=== PATIENT | male | born 1980 | race Caucasian/White ===

== ENCOUNTER 2019-03-26 12:09 | Inpatient (IN) | payer SELFPAY | END 2019-03-29 09:30 | disposition home or self-care (01) | LOC: YASAS 12:09 → Y6N 18:21 ==

== ENCOUNTER 2019-08-01 19:17 | Inpatient (IN) | payer OTHER ==
[2019-08-01 21:48] VITALS: BMI 25.0
--- NOTE | 2019-08-01 22:57 | HP ---
CIWA Score Nausea/Vomitin Muscle Tremors: 4-Moderate,w/Arms Extend Anxiety: 4-Mod. Anxious/Guarded Agitation: 4-Moderately Restless Paroxysmal Sweats: 3 Orientation: 1-Uncertain about Date Tacttile Disturbances: 2-Mild Itch/Numbness/Burn Auditory Disturbances: 2-Mild Harshness/Frighten (to noise) Visual Disturbances: 3-Moderate Sensitivity (bright light) Headache: 4-Moderately Severe CIWA-Ar Total Score: 30 - Admission Criteria OASAS Guidelines: Admission for Medically Managed Detox: Requires at least one of the followin. CIWA greater than 12 2. Seizures within the past 24 hours 3. Delirium tremens within the past 24 hours 4. Hallucinations within the past 24 hours 5. Acute intervention needed for co occurring medical disorder 6. Acute intervention needed for co occurring psychiatric disorder 7. Severe withdrawal that cannot be handled at a lower level of care (continued vomiting, continued diarrhea, abnormal vital signs) requiring intravenous medication and/or fluids 8. Patient presents the following: Acute intervention needed for co-occurring med or psych disorder (elevated b/p and tachy) Admission Criteria Met: Admission criteria met Admitting History and Physical - Smoking History Smoking history: Never smoked - Alcohol/Substance Use Hx Alcohol Use: Yes Admission ROS S - HPI Chief Complaint: seeking detox for alcohol dependence Allergies/Adverse Reactions: Allergies Allergy/AdvReac Type Severity Reaction Status Date / Time No Known Allergies Allergy Verified 08/01/19 21:36 History of Present Illness: here for alcohol detox. he is self referred. last here in 2018. client reports sobriety until a few days ago approx 3 days ago when he relapsed. now presents with c/o withdrawal sx's as he wants to stop drinking. last alcohol use this morning. he reports he has been drinking about 1/2 daily. he has run out of money and is now in withdrawal. 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 client utox + bup... denies opi use states took a total of 8 mg strip to day to help with withdrawal sx's. Search Terms: rosales enoc, 1980Search Date: 08/01/2019 10:55:57 PM The Drug Utilization Report below displays all of the controlled substance prescriptions, if any, that your patient has filled in the last twelve months. The information displayed on this report is compiled from pharmacy submissions to the Department, and accurately reflects the information as submitted by the pharmacies. This report was requested by: Shahnaz Mooney | Reference #: [id number] There are no results for the search terms that you entered. Exam Limitations: No Limitations - Ebola screening Have you traveled outside of the country in the last 21 days: No (N) Have you had contact with anyone from an Ebola affected area: No Do you have a fever: No - Review of Systems Constitutional: Chills, Loss of Appetite, Night Sweats, Changes in sleep EENT: reports: No Symptoms Reported Respiratory: reports: No Symptoms reported, Shortness of Breath Cardiac: reports: No Symptoms Reported GI: reports: Nausea, Poor Appetite, Poor Fluid Intake, Vomiting : reports: No Symptoms Reported Musculoskeletal: reports: Back Pain, Joint Pain, Neck Pain Integumentary: reports: Flushing, Sweating Neuro: reports: Headache, Seizure (few years ago r/t withdrawa), Dizziness Endocrine: reports: No Symptoms Reported Hematology: reports: No Symptoms Reported Psychiatric: reports: Orientated x3, Agitated (irritable), Anxious, Depressed Other Systems: Reviewed and Negative Patient History - Patient Medical History Hx Anemia: No Hx Asthma: No Hx Chronic Obstructive Pulmonary Disease (COPD): No Hx Cancer: No Hx Cardiac Disorders: No Hx Congestive Heart Failure: No Hx Hypertension: No Hx Hypercholesterolemia: No Hx Pacemaker: No HX Cerebrovascular Accident: No Hx Seizures: No Hx Dementia: No Hx Diabetes: No Hx Gastrointestinal Disorders: No Hx Liver Disease: Yes Hx Genitourinary Disorders: No Hx Sexually Transmitted Disorders: No Hx Renal Disease (ESRD): No Hx Thyroid Disease: No Hx Human Immunodeficiency Virus (HIV): No Hx Hepatitis C: Yes (UNTREATED) Hx Depression: No Hx Suicide Attempt: No Hx Bipolar Disorder: No Hx Schizophrenia: No Other Medical History: denies - Patient Surgical History Past Surgical History: No - PPD History Previous Implant?: Yes Documented Results: Negative w/proof Implanted On Prior [facility] Admission?: Yes Date: 03/28/19 Results: 0MM PPD to be Administered?: No - Smoking Cessation Smoking history: Current every day smoker Have you smoked in the past 12 months: Yes Aproximately how many cigarettes per day: 5 Cigars Per Day: 0 Hx Chewing Tobacco Use: No Initiated information on smoking cessation: Yes 'Breaking Loose' booklet given: 08/01/19 - Substance & Tx. History Hx Alcohol Use: Yes Hx Substance Use: Yes Substance Use Type: Alcohol Hx Substance Use Treatment: Yes ([facility]) - Substances abused Alcohol Substance route: Oral Frequency: Daily Amount used: 1/2 GAL OF VODKA Age of first use: 17 Date of last use: 08/01/19 Admission Physical Exam [facility] - Vital Signs Vital Signs: Vital Signs - 24 hr 08/01/19 21:36 Temperature 97.7 F Pulse Rate 104 H Respiratory 20 Rate Blood Pressure 171/92 H - Physical General Appearance: Yes: Moderate Distress, Alcohol on Breath, Irritable, Sweating, Anxious HEENTM: Yes: EOMI, Normocephalic, Normal Voice, BRAEDEN, Pharynx Normal, Rhinorrhea Respiratory: Yes: Chest Non-Tender, Lungs Clear, Normal Breath Sounds, No Respiratory Distress, No Accessory Muscle Use Neck: Yes: No masses,lesions,Nodules, Supple, Trachea in good position Breast: Yes: Breasts Symetrical Cardiology: Yes: Regular Rhythm, S1, S2, Tachycardia Abdominal: Yes: Normal Bowel Sounds, Non Tender, Soft Genitourinary: Yes: Within Normal Limits Back: Yes: Normal Inspection Musculoskeletal: Yes: full range of Motion, Gait Steady Extremities: Yes: Normal Capillary Refill, Normal Range of Motion, Non-Tender Neurological: Yes: Fully Oriented, Alert, Motor Strength 5/5, Depressed Affect Integumentary: Yes: Warm, Moist, Other (flushed multiple tattoos) Lymphatic: Yes: Within Normal Limits - Diagnostic (1) Alcohol dependence with withdrawal, uncomplicated Current Visit: Yes Status: Acute (2) At risk for dehydration due to poor fluid intake Current Visit: Yes Status: Acute (3) Depressed affect Current Visit: Yes Status: Acute (4) Nicotine dependence Current Visit: Yes Status: Acute Qualifiers: Nicotine product type: cigarettes Substance use status: uncomplicated Qualified Code(s): F17.210 - Nicotine dependence, cigarettes, uncomplicated (5) Homeless Current Visit: Yes Status: Acute (6) HCV (hepatitis C virus) Current Visit: No Status: Acute Qualifiers: Viral hepatitis chronicity: chronic Cleared for Admission [facility] - Detox or Rehab [facility] Level of Care: Medically Managed Detox Regimen/Protocol: Librium Claeared for Rehab Admission: No Breathalyzer - Breathalyzer Breathalyzer: 0 Urine Drug Screen - Test Device Lot number: [id number] Expiration date: 12/31/20 - Control Is test valid?: Yes - Results Drug screen NEGATIVE: No Urine drug screen results: OXY-Oxycodone Inpatient Rehab Admission - Rehab Decision to Admit Inpatient rehab admission?: No
[2019-08-01] MEDS ORDERED: MAGNESIUM CITRATE 300 ML BOTTLE PO PRN (23:10)
[2019-08-01] MEDS ORDERED: P-EPHED 60MG/TRIPROLIDI 2.5MG TABLET PO PRN (23:10)
[2019-08-01] MEDS ORDERED: MAGNESIUM HYDROX 2400MG/30ML ORAL SUSPENSION 30 ML CUP PO PRN (23:10)
[2019-08-01] MEDS ORDERED: ACETAMINOPHEN 325 MG TABLET (FP) PO PRN ×2 (23:10)
[2019-08-01] MEDS ORDERED: NICOTINE POLACRILEX 2 MG GUM BUC PRN (23:10)
[2019-08-01] MEDS ORDERED: BISMUTH SUBSALICYLATE 524 MG/30 ML UD PO PRN (23:10)
[2019-08-01] MEDS ORDERED: guaiFENesin 200 MG/10 ML 10 ML UNIT-DOSE CUPS PO PRN (23:10)
[2019-08-01] MEDS ORDERED: METHOCARBAMOL 500 MG TABLET PO PRN (23:10)
[2019-08-01] MEDS ORDERED: DICYCLOMINE HCL 10 MG CAPSULE PO PRN (23:10)
[2019-08-01] MEDS ORDERED: MELATONIN 5 MG TABLETS PO PRN (23:10)
[2019-08-01] MEDS ORDERED: MENTHOL/PHENOL 1 EACH UD MM PRN (23:10)
[2019-08-01] MEDS ORDERED: chlordiazePOXIDE HCL 25 MG CAPSULE PO PRN (23:10)
[2019-08-01] MEDS ORDERED: TRIMETHOBENZAMIDE HCL 200MG/2ML INJ IM ONE (23:30)
[2019-08-02] MEDS: chlordiazePOXIDE HCL 25 MG CAPSULE PO SCH ×6 (01:32→22:30)
[2019-08-02] MEDS: ONDANSETRON *ODT* 4 MG TABLET SL PRN (02:34)
[2019-08-02] MEDS: PRENATAL VITAMINS W/ FOLIC ACID TABLET (FP) PO SCH (10:53)
[2019-08-02] MEDS: NICOTINE 14 MG/24 HOURS TOPICAL PATCH TD SCH (10:55)
[2019-08-02 10:58] LABS: ALBUMIN 4.3 g/dl (3.4-5.0); BILIRUBIN,TOTAL 2.2 mg/dL (0.2-1); BLOOD UREA NITROGEN 17.9 mg/dL (7-18); CALCIUM 9.4 mg/dL (8.5-10.1); CREATININE 1.1 mg/dL (0.55-1.3)
[2019-08-02 11:10] LABS: HEMATOCRIT 41.5 % (35.4-49); HEMOGLOBIN 14.3 GM/dL (11.7-16.9); MCH 30.9 pg (25.7-33.7); MCHC 34.6 g/dl (32.0-35.9); MEAN CELL VOLUME 89.3 fl (80-96); MEAN PLT VOLUME 8.1 fl (7.5-11.1); PLATELET COUNT 172 K/MM3 (134-434); RBC 4.64 M/mm3 (4.00-5.60); RDW 12.7 % (11.9-15.9); WHITE BLOOD COUNT 8.4 K/mm3 (4.0-10.0)
[2019-08-02 12:30] LABS: POTASSIUM 2.8 mmol/L (3.5-5.1)
--- NOTE | 2019-08-02 12:45 | PN ---
S CIWA - CIWA Score Nausea/Vomitin-Mild Nausea/No Vomiting Muscle Tremors: 3 Anxiety: 3 Agitation: 3 Paroxysmal Sweats: 3 Orientation: 0-Oriented Tacttile Disturbances: 0-None Auditory Disturbances: 0-None Visual Disturbances: 0-None Headache: 1-Very Mild CIWA-Ar Total Score: 14 BHS Progress Note (SOAP) Subjective: pt states doing better with detox- day #1 O: Vital Signs - 24 hr 08/01/19 08/01/19 08/02/19 21:36 23:49 00:10 Temperature 97.7 F 98.1 F Pulse Rate 104 H 104 H 112 H Respiratory 20 16 20 Rate Blood Pressure 171/92 H 134/96 137/76 08/02/19 08/02/19 08/02/19 00:30 03:30 06:00 Temperature 98.4 F Pulse Rate 89 Respiratory 18 18 20 Rate Blood Pressure 141/82 08/02/19 09:47 Temperature 98.5 F Pulse Rate 115 H Respiratory 18 Rate Blood Pressure 141/90 Laboratory Tests 08/02/19 08/02/19 08/02/19 07:50 07:50 07:50 WBC 8.4 RBC 4.64 Hgb 14.3 Hct 41.5 MCV 89.3 MCH 30.9 MCHC 34.6 RDW 12.7 Plt Count 172 D MPV 8.1 Sodium 133 L Potassium 2.8 L* Chloride 92 L Carbon Dioxide 35 H Anion Gap 6 L BUN 17.9 Creatinine 1.1 Est GFR (CKD-EPI)AfAm 98.87 Est GFR (CKD-EPI)NonAf 85.31 Random Glucose 152 H Calcium 9.4 Total Bilirubin 2.2 H AST 27 ALT 46 Alkaline Phosphatase 64 Total Protein 7.0 Albumin 4.3 HIV 1&2 Antibody Screen Negative HIV P24 Antigen Negative decreased potassium a/p: AUD- continue detox protocol low K- repletion with Kcl- ordered, repeat chem 7 orderedd
--- NOTE | 2019-08-02 14:48 | CONSULT ---
[facility] Psychiatric Consult - Data Date of interview: 08/02/19 Admission source: [facility] Identifying data: Readmission to [facility] for this 38 y/o male self- referred for detoxification ([place] issues : alcohol, nicotine). Interviewd at [address] [place] [address]. Patient is single, no dependents, homeless, unemployed and deprived of income. Substance Abuse History: Discussed with the patient. Details in current [facility] reporty as follows : Smoking history: Current every day smoker. Have you smoked in the past 12 months: Yes. Aproximately how many cigarettes per day: 5. Cigars Per Day: 0. Hx Chewing Tobacco Use: No. Initiated information on smoking cessation: Yes. 'Breaking Loose' booklet given: 08/01/19. - Substance & Tx. History. Hx Alcohol Use: Yes. Hx Substance Use: Yes. Substance Use Type : Alcohol. Hx Substance Use Treatment: Yes ([facility]). - Substances abused. Alcohol. Substance route: Oral. Frequency: Daily. Amount used: 1/2 GAL OF VODKA. Age of first use: 17. Date of last use: 08/01/19 Medical History: Patient endorses good general health. Psychiatric History: Patient denies history of psychiatric hospitalizations, OPD care or suicide attempts. Physical/Sexual Abuse/Trauma History: Patient denies. Additional Comment: Urine drug screen results: OXY-Oxycodone. Noted. Mental Status Exam - Mental Status Exam Alert and Oriented to: Time, Place, Person Cognitive Function: Good Patient Appearance: Well Groomed (covered with tattoos : neck, cheeks, upper extremities, chest) Mood: Hopeful, Euthymic Affect: Appropriate, Normal Range Patient Behavior: Fatigued, Appropriate, Cooperative Speech Pattern: Clear Voice Loudness: Normal Thought Process: Intact, Goal Oriented Thought Disorder: Not Present Hallucinations: Denies Suicidal Ideation: Denies Homicidal Ideation: Denies Insight/Judgement: Poor Sleep: Well Appetite: Good Gait/Station: Normal Psychiatric Findings - Problem List ([place] 1, 2,3) (1) Alcohol dependence with withdrawal, uncomplicated Current Visit: Yes Status: Acute (2) Nicotine dependence Current Visit: Yes Status: Chronic Qualifiers: Nicotine product type: cigarettes Substance use status: uncomplicated Qualified Code(s): F17.210 - Nicotine dependence, cigarettes, uncomplicated - Initial Treatment Plan Initial Treatment Plan: Psychoeducation. Sleep hygiene. Detoxification. MAT services discussed with patient. AA meetings. Observation.
[2019-08-02] MEDS: POTASSIUM CHLORIDE TABS 20 MEQ TABLET.ER (FP) PO SCH ×2 (18:37→22:30)
[2019-08-02] MEDS: THIAMINE HCL 100 MG TABLET (FP) PO SCH (22:30)
[2019-08-03] MEDS: chlordiazePOXIDE HCL 25 MG CAPSULE PO SCH ×4 (06:33→22:31)
[2019-08-03] MEDS: POTASSIUM CHLORIDE TABS 20 MEQ TABLET.ER (FP) PO SCH ×2 (10:37→22:30)
[2019-08-03] MEDS: PRENATAL VITAMINS W/ FOLIC ACID TABLET (FP) PO SCH (10:37)
[2019-08-03] MEDS: NICOTINE 14 MG/24 HOURS TOPICAL PATCH TD SCH (11:00)
--- NOTE | 2019-08-03 12:13 | PN ---
[facility] CIWA - CIWA Score Nausea/Vomitin-No Nausea/No Vomiting Muscle Tremors: 2 Anxiety: 2 Agitation: 2 Paroxysmal Sweats: 2 Orientation: 0-Oriented Tacttile Disturbances: 0-None Auditory Disturbances: 0-None Visual Disturbances: 0-None Headache: 0-None Present CIWA-Ar Total Score: 8 BHS Progress Note (SOAP) Subjective: sweats shakes nausea interrupted sleep irritable Objective: 08/03/19 12:12 Vital Signs Temperature 97.9 F 08/03/19 09:31 Pulse Rate 113 H 08/03/19 09:31 Respiratory Rate 18 08/03/19 09:31 Blood Pressure 103/64 08/03/19 09:31 O2 Sat by Pulse Oximetry (%) Laboratory Tests 08/02/19 08/02/19 08/02/19 07:50 07:50 07:50 WBC 8.4 RBC 4.64 Hgb 14.3 Hct 41.5 MCV 89.3 MCH 30.9 MCHC 34.6 RDW 12.7 Plt Count 172 D MPV 8.1 Sodium 133 L Potassium 2.8 L* Chloride 92 L Carbon Dioxide 35 H Anion Gap 6 L BUN 17.9 Creatinine 1.1 Est GFR (CKD-EPI)AfAm 98.87 Est GFR (CKD-EPI)NonAf 85.31 Random Glucose 152 H Calcium 9.4 Total Bilirubin 2.2 H AST 27 ALT 46 Alkaline Phosphatase 64 Total Protein 7.0 Albumin 4.3 HIV 1&2 Antibody Screen Negative HIV P24 Antigen Negative repeated labs pending pt is currently ordered [id number] ambulating no acute distress Assessment: 08/03/19 12:12 withdrawals Plan: continue detox increase fluids pending labs
[2019-08-03] MEDS: THIAMINE HCL 100 MG TABLET (FP) PO SCH (22:30)
[2019-08-04] MEDS ORDERED: chlordiazePOXIDE HCL 10 MG CAPSULE PO PRN
[2019-08-04] MEDS: chlordiazePOXIDE HCL 10 MG CAPSULE PO SCH ×4 (05:32→22:22)
[2019-08-04 10:17] LABS: PH,URINE 8.5 (5.0-8.0); URINE APPEARANCE CLOUDY; URINE BILIRUBIN NEGATIVE (NEGATIVE); URINE COLOR YELLOW; URINE GLUCOSE (UA) NEGATIVE (NEGATIVE); URINE KETONE NEGATIVE (NEGATIVE); URINE LEUK ESTERASE NEGATIVE (NEGATIVE); URINE NITRITE NEGATIVE (NEGATIVE); URINE PROTEIN NEGATIVE (NEGATIVE)
[2019-08-04] MEDS: NICOTINE 14 MG/24 HOURS TOPICAL PATCH TD SCH (10:40)
[2019-08-04] MEDS: POTASSIUM CHLORIDE TABS 20 MEQ TABLET.ER (FP) PO SCH (10:41)
[2019-08-04] MEDS: PRENATAL VITAMINS W/ FOLIC ACID TABLET (FP) PO SCH (10:41)
[2019-08-04] MEDS: IBUPROFEN 400 MG TABLET (FP) PO PRN (10:42)
[2019-08-04 10:57] LABS: BLOOD UREA NITROGEN 16.7 mg/dL (7-18); CALCIUM 9.1 mg/dL (8.5-10.1); CREATININE 0.9 mg/dL (0.55-1.3)
--- NOTE | 2019-08-04 11:19 | PN ---
S CIWA - CIWA Score Nausea/Vomitin-Mild Nausea/No Vomiting Muscle Tremors: 1-None Visible, but [place] Anxiety: 2 Agitation: 2 Paroxysmal Sweats: No Perspiration Orientation: 0-Oriented Tacttile Disturbances: 1-Very Mild Itch/Numbness Auditory Disturbances: 0-None Visual Disturbances: 0-None Headache: 1-Very Mild CIWA-Ar Total Score: 8 BHS Progress Note (SOAP) Subjective: alert,irritable,anxious,interrupted sleep,pain in the body Objective: 08/04/19 11:16 Vital Signs Temperature 98.1 F 08/04/19 09:54 Pulse Rate 80 08/04/19 09:54 Respiratory Rate 17 08/04/19 09:54 Blood Pressure 104/66 08/04/19 09:54 O2 Sat by Pulse Oximetry (%) 08/04/19 11:17 Laboratory Results - last 24 hr 08/04/19 08/04/19 07:30 07:50 Sodium 138 Potassium 4.0 Chloride 97 L Carbon Dioxide 35 H Anion Gap 5 L BUN 16.7 Creatinine 0.9 Est GFR (CKD-EPI)AfAm 126.02 Est GFR (CKD-EPI)NonAf 108.73 Random Glucose 98 Calcium 9.1 Urine Color Yellow Urine Appearance Cloudy Urine pH 8.5 H Ur Specific [place] 1.023 Urine Protein Negative Urine Glucose (UA) Negative Urine Ketones Negative Urine Blood Negative Urine Nitrite Negative Urine Bilirubin Negative Urine Urobilinogen 1.0 Ur Leukocyte Esterase Negative 08/04/19 11:17 k is 4.0 Assessment: 08/04/19 11:17 withdrawal symptom Plan: continue detox librium regimen,kis 4,to d/c k replacement
--- NOTE | 2019-08-04 11:20 | PN ---
[facility] Progress Note Note: rpr pending
--- NOTE | 2019-08-04 12:01 | EKG ---
Test Reason : Blood Pressure : / mmHG Vent. Rate : 093 BPM Atrial Rate : 093 BPM P-R Int : 166 ms QRS Dur : 092 ms QT Int : 366 ms P-R-T Axes : 067 057 029 degrees QTc Int : 455 ms NORMAL SINUS RHYTHM NORMAL ECG WHEN COMPARED WITH ECG OF 26-MAR-2019 18:31, NO SIGNIFICANT CHANGE WAS FOUND Confirmed by LEA SMITH MD ([id number]) on 08/04/2019 12:01:20 PM Referred By: Confirmed By:LEA SMITH MD
[2019-08-04] MEDS: hydrOXYzine PAMOATE 25 MG CAPSULE (FP) PO PRN (15:33)
[2019-08-04] MEDS: ONDANSETRON *ODT* 4 MG TABLET SL PRN (17:46)
[2019-08-04] MEDS: THIAMINE HCL 100 MG TABLET (FP) PO SCH (22:23)
[2019-08-05] MEDS: chlordiazePOXIDE HCL 10 MG CAPSULE PO SCH ×2 (06:44→17:56)
[2019-08-05] MEDS: PRENATAL VITAMINS W/ FOLIC ACID TABLET (FP) PO SCH (10:28)
[2019-08-05] MEDS: NICOTINE 14 MG/24 HOURS TOPICAL PATCH TD SCH (10:29)
[2019-08-05] MEDS: hydrOXYzine PAMOATE 25 MG CAPSULE (FP) PO PRN (10:30)
[2019-08-05] MEDS: IBUPROFEN 400 MG TABLET (FP) PO PRN (10:31)
[2019-08-05] MEDS: MAG HYDROX/AL HYDROX/SIMETH 30 ML UNIT-DOSE CUP PO PRN ×2 (10:33→17:54)
--- NOTE | 2019-08-05 10:37 | PN ---
S CIWA - CIWA Score Nausea/Vomitin-Mild Nausea/No Vomiting Muscle Tremors: 1-None Visible, but [place] Anxiety: 1-Mildly Anxious Agitation: 2 Paroxysmal Sweats: No Perspiration Orientation: 0-Oriented Tacttile Disturbances: 1-Very Mild Itch/Numbness Auditory Disturbances: 0-None Visual Disturbances: 0-None Headache: 1-Very Mild CIWA-Ar Total Score: 7 BHS Progress Note (SOAP) Subjective: alert,irritable,anxious,interrupted sleep Objective: 08/05/19 10:35 Vital Signs Temperature 98.5 F 08/05/19 09:15 Pulse Rate 93 H 08/05/19 09:15 Respiratory Rate 16 08/05/19 09:15 Blood Pressure 116/66 08/05/19 09:15 O2 Sat by Pulse Oximetry (%) Assessment: 08/05/19 10:37 withdrawal symptom 08/05/19 10:38 rpr pending Plan: continue detox librium regimen,discharge in am
[2019-08-05] MEDS ORDERED: PANTOPRAZOLE 40 MG TABLET (FP) PO ONE (15:09)
[2019-08-05] MEDS: THIAMINE HCL 100 MG TABLET (FP) PO SCH (22:21)
[2019-08-06] MEDS ORDERED: chlordiazePOXIDE HCL 10 MG CAPSULE PO ONE (05:00)
--- NOTE | 2019-08-06 08:50 | DS ---
[facility] Detox Discharge Summary Admission Date: 08/01/19 Discharge Date: 08/06/19 - History Present History: Alcohol Dependence - Physical Exam Results Vital Signs: Vital Signs Temperature 97.9 F 08/06/19 06:44 Pulse Rate 77 08/06/19 06:44 Respiratory Rate 18 08/06/19 06:44 Blood Pressure 109/73 08/06/19 06:44 O2 Sat by Pulse Oximetry (%) Pertinent Admission Physical Exam Findings: pt arrived in withdrawals Vital Signs Temperature 97.9 F 08/06/19 06:44 Pulse Rate 77 08/06/19 06:44 Respiratory Rate 18 08/06/19 06:44 Blood Pressure 109/73 08/06/19 06:44 O2 Sat by Pulse Oximetry (%) Laboratory Tests 08/02/19 08/02/19 08/02/19 07:50 07:50 07:50 WBC 8.4 RBC 4.64 Hgb 14.3 Hct 41.5 MCV 89.3 MCH 30.9 MCHC 34.6 RDW 12.7 Plt Count 172 D MPV 8.1 Sodium 133 L Potassium 2.8 L* Chloride 92 L Carbon Dioxide 35 H Anion Gap 6 L BUN 17.9 Creatinine 1.1 Est GFR (CKD-EPI)AfAm 98.87 Est GFR (CKD-EPI)NonAf 85.31 Random Glucose 152 H Calcium 9.4 Total Bilirubin 2.2 H AST 27 ALT 46 Alkaline Phosphatase 64 Total Protein 7.0 Albumin 4.3 Urine Color Urine Appearance Urine pH Ur Specific [place] Urine Protein Urine Glucose (UA) Urine Ketones Urine Blood Urine Nitrite Urine Bilirubin Urine Urobilinogen Ur Leukocyte Esterase RPR Titer Nonreactive HIV 1&2 Antibody Screen HIV P24 Antigen 08/02/19 08/04/19 08/04/19 07:50 07:30 07:50 WBC RBC Hgb Hct MCV MCH MCHC RDW Plt Count MPV Sodium 138 Potassium 4.0 Chloride 97 L Carbon Dioxide 35 H Anion Gap 5 L BUN 16.7 Creatinine 0.9 Est GFR (CKD-EPI)AfAm 126.02 Est GFR (CKD-EPI)NonAf 108.73 Random Glucose 98 Calcium 9.1 Total Bilirubin AST ALT Alkaline Phosphatase Total Protein Albumin Urine Color Yellow Urine Appearance Cloudy Urine pH 8.5 H Ur Specific [place] 1.023 Urine Protein Negative Urine Glucose (UA) Negative Urine Ketones Negative Urine Blood Negative Urine Nitrite Negative Urine Bilirubin Negative Urine Urobilinogen 1.0 Ur Leukocyte Esterase Negative RPR Titer HIV 1&2 Antibody Screen Negative HIV P24 Antigen Negative today pt is aaox3 ambulating no acute distress no s/s of withdrawals - Treatment Hospital Course: Detox Protocol Followed, Detoxed Safely, Responded well, Discharged Condition Good, Rehab Referral Accepted Patient has Accepted a Rehab Referral to: pt referred to [facility] inpatient rehab - Medication Discharge Medications: Ambulatory Orders NK [No Known Home Medication] 03/26/19 - Diagnosis (1) Alcohol dependence with withdrawal, uncomplicated Current Visit: Yes Status: Chronic (2) At risk for dehydration due to poor fluid intake Current Visit: Yes Status: Chronic (3) Depressed affect Current Visit: Yes Status: Acute (4) Homeless Current Visit: Yes Status: Acute (5) Nicotine dependence Current Visit: Yes Status: Chronic Qualifiers: Nicotine product type: cigarettes Substance use status: uncomplicated Qualified Code(s): F17.210 - Nicotine dependence, cigarettes, uncomplicated (6) HCV (hepatitis C virus) Current Visit: No Status: Acute Qualifiers: Viral hepatitis chronicity: chronic - AMA Did Patient Leave Against Medical Advice: No
[2019-08-06 09:17] VITALS: BP 137/66; PULSE 108; TEMP 98.4
[2019-08-06] MEDS ORDERED: PANTOPRAZOLE 40 MG TABLET (FP) PO SCH (10:00)
[2019-08-06] MEDS: PRENATAL VITAMINS W/ FOLIC ACID TABLET (FP) PO SCH (10:04)
== END 2019-08-06 10:20 | disposition home or self-care (01) | DRG 775 ==
LOC: YASAS 19:17 → Y6N 23:12
PROVIDERS: ADMIT Allergy & Immunology; ATTEND Allergy & Immunology
PROC: HZ2ZZZZ Detoxification Services for Substance Abuse Treatment (ICD-10-PCS; principal; 2019-08-01)
DX: F10.230 Alcohol dependence with withdrawal, uncomplicated (principal); F17.210 Nicotine dependence, cigarettes, uncomplicated; B18.2 Chronic viral hepatitis C; R45.89 Other symptoms and signs involving emotional state; Z91.89 Other specified personal risk factors, not elsewhere classified; Z59.0 Homelessness
CPT/HCPCS: 36415; 80048; 80053; 81003; 85027; 86593; 87389; 93005; 93010; Q0162